=== PATIENT | female | born 1995 | race African-American/Black ===

== ENCOUNTER 2023-10-17 06:34 | Emergency (ER) | payer BC, SELFPAY ==
--- NOTE | ~2023-10-17 | US_ITS ---
US abdomen limited INDICATION: Right upper quadrant pain PROCEDURE: Realtime right upper abdominal ultrasound. COMPARISON: No prior studies for comparison. FINDINGS: The pancreas is normal without focal mass or pancreatic ductal dilation. Liver echotexture is normal without focal mass or intrahepatic biliary dilatation. There is normal directional flow i n the portal vein. There are multiple gallstones. No gallbladder wall thickening or pericholecystic fluid. Common bile duct measures 3 mm. No sonographic Park's sign. IMPRESSION: 1: Cholelithiasis. Reviewed, dictated and finalized at location B. [employer] [employer] IMPRESSION: 1: Cholelithiasis.
--- NOTE | ~2023-10-17 | CT_ITS ---
CT of the Abdomen and Pelvis: Indication: Abdominal pain Technique: 2.5 mm axial scans were obtained through the abdomen and pelvis following intravenous adm inistration of 100 cc of Omnipaque 350. Dose reduction technique was used on this scan by utilizing a utomated exposure control and iterative reconstruction technique. The dose-length product (DLP) was 9 55.89 mGy-cm. Findings: Scans through the lung bases are unremarkable. The liver, spleen, pancreas, adrenals and kidneys are within normal limits. Gallbladder is probably d istended, possible small amount of sludge present. No evidence of aortic aneurysm. No lymphadenopath y. No bowel obstruction or bowel wall thickening. There is no evidence to suggest acute appendicitis. Images through the pelvis were performed. Urinary bladder unremarkable. No adnexal mass seen. No asci danial. Impression: Probable small amount of gallbladder sludge. No other significant findings. Reviewed, dictated and finalized at [facility] [place]. [facility] Impression: Probable small amount of gallbladder sludge. No other significant findings.
[2023-10-17 06:43] VITALS: BP 131/82; PULSE 96; RESP 18; TEMP 36.4; O2SAT 97
[2023-10-17 07:34] LABS: Basophils Percent Auto 0.3 % (0.2-1.2); Eosinophils Absolute Auto 0.1 K/mm3 (0-0.3); Eosinophils Percent Auto 2.2 % (0-4.4); Hematocrit 38.2 % (37.0-47.0); Hemoglobin 12.3 g/dL (12.0-15.0); Immature Granulocyte Absolute 0.01 K/mm3 (0.00-0.031); Immature Granulocyte Percent A 0.2 % (0-0.5); Lymphocytes Absolute Auto 2.04 K/mm3 (0.9-3.2); Lymphocytes Percent Auto 34.4 % (18.3-44.2); Mean Corpuscular HGB Conc 32.2 g/dl (32-36); Mean Corpuscular Hemoglobin 27.5 pg (26-34); Mean Corpuscular Volume 85.3 fl (80-100); Mean Platelet Volume 9.7 fl (7.4-10.4); Monocytes Absolute Auto 0.4 K/mm3 (0.1-0.6); Monocytes Percent Auto 6.7 % (2.6-8.5); Neutrophils Absolute Auto 3.3 K/mm3 (1.3-6.7); Neutrophils Percent Auto 56.2 % (45.5-73.1); Platelet Count Result 339 k/mm3 (150-375); Red Blood Count 4.48 M/mm3 (4.2-5.4); Red Cell Distribution Width 13.2 % (11.5-14.5); White Blood Count 5.9 K/mm3 (4.5-10.0)
[2023-10-17] MEDS: HYDROmorphone HCL INJ (*CRX) 1 MG/ML SYR 0.5 MG IV PUSH ×2 (07:39→09:13)
[2023-10-17] MEDS: ONDANSETRON INJ 4 MG/2 ML VIAL IV PUSH (07:39)
--- NOTE | 2023-10-17 07:40 | ED.ABDPAIN ---
HPI - Abdominal Pain General Chief Complaint: Abdominal Pain Stated Complaint: upper abd pain, N/V Time Seen by Provider: 10/17/23 07:11 History of Present Illness HPI narrative: 28-year-old female presents to the emergency department for evaluation of right upper quadrant right flank pain that started this morning approximately 5:00 a.m.. Patient does have associated nausea and vomiting with it. Patient denies any prior history of gallbladder disease. Patient denies any prior history of kidney stones. Patient reports she has had similar pain to this typically the attacks were shorter and this intense. Related Data Allergies Allergy/AdvReac Type Severity Reaction Status Date / Time No Known Allergies Allergy Verified 10/17/23 07:38 Review of Systems Review of Systems: All systems reviewed & are unremarkable except as noted in HPI and below Exam Narrative: APPEARANCE: Uncomfortable appearing HEAD: normocephalic, atraumatic. EYES: PERRLA/EOMI, conjunctivae clear. NOSE: Normal no drainage EARS:TMS clear with good light reflex. THROAT: Pharynx clear, no exudate. NECK: Supple. No adenopathy, no masses. RESPIRATORY: Airway patent, respirations nonlabored. Clear to auscultation bilaterally, no rales, rhonchi, wheezing. CARDIOVASCULAR: Regular rate and rhythm without murmurs rubs or gallops. ABDOMINAL: right upper quadrant and right flank tenderness to palpation no rebound MUSCULOSKELETAL: Moves all extremities. Strength/ROM intact, No edema, No calf tenderness. NEURO: Alert. Cranial nerves II through XII intact. grossly intact Course Course Emergency Course: 28-year-old female present in the department for evaluation of upper quadrant pain. Patient was treated fluids medications for nausea and for pain control. Patient did feel improved with treatment. Patient is afebrile with no leukocytosis and a stable hemoglobin. Patient has mild elevation of AST and ALT elevation in alk-phos or T bili. Lipase not elevated. UA shows no signs of infection. Patient did have some gallbladder sludge seen on the CT scan and ultrasound shows cholelithiasis. Re-examination patient is pain free. Patient was educated the treatment plan for home and patient provided outpatient follow-up with surgery. Patient was also educated on reasons to return to the department. All questions concerns addressed patient was appearing at time of discharge from the emergency department. Vital Signs Vital signs: Vital Signs Temperature 97.6 F 10/17/23 06:43 Pulse Rate 96 10/17/23 06:43 Respiratory Rate 18 10/17/23 06:43 Blood Pressure 131/82 10/17/23 06:43 Pulse Oximetry 97 10/17/23 06:43 Temperature 97.6 F 10/17/23 06:43 Pulse Rate 80 10/17/23 11:58 Respiratory Rate 18 10/17/23 11:58 Blood Pressure 134/82 10/17/23 11:58 Pulse Oximetry 100 10/17/23 11:58 MDM - Abdominal Pain Differential Diagnosis Differential diagnosis: Likely abdominal pain, acute appendicitis, calculus of kidney, constipation, diverticulitis and small bowel obstruction Lab Data Attestation: I reviewed the patient's lab results. 10/17/23 07:27 10/17/23 07:27 Labs: Lab Results 10/17/23 10/17/23 Range/Units 07:27 08:19 WBC 5.9 (4.5-10.0) K/mm3 RBC 4.48 (4.2-5.4) M/mm3 Hgb 12.3 (12.0-15.0) g/dL Hct 38.2 (37.0-47.0) % MCV 85.3 (80-100) fl MCH 27.5 (26-34) pg MCHC 32.2 (32-36) g/dl RDW 13.2 (11.5-14.5) % Plt Count 339 (150-375) k/mm3 MPV 9.7 (7.4-10.4) fl Immature Gran % (Auto) 0.2 (0-0.5) % Neut % (Auto) 56.2 (45.5-73.1) % Lymph % (Auto) 34.4 (18.3-44.2) % [place] % (Auto) 6.7 (2.6-8.5) % Eos % (Auto) 2.2 (0-4.4) % Baso % (Auto) 0.3 (0.2-1.2) % Lymph # (Auto) 2.04 (0.9-3.2) K/mm3 [place] # (Auto) 0.4 (0.1-0.6) K/mm3 Eos # (Auto) 0.1 (0-0.3) K/mm3 Baso # (Auto) 0.0 (0.0-0.1) K/mm3 Abs Immat Gran (auto) 0.01 (0.00-0.031)
[2023-10-17 07:48] LABS: Alanine Aminotransferase 44 U/L (6-35); Albumin Level 4.7 g/dL (3.5-5.1); Alkaline Phosphatase 85 U/L (38-126); Anion Gap 11 mmol/L (8-16); Aspartate Amino Transferase 41 U/L (14-36); Bilirubin,Total 0.5 mg/dL (0.2-1.3); Blood Urea Nitrogen 10 mg/dL (7-17); Calcium 8.7 mg/dL (8.4-10.2); Carbon Dioxide 24 mmol/L (22-30); Chloride 105 mmol/L (98-107); Estimated CRCL calculation 152 ml/min; Estimated Glomerular Filt Rate > 60; Glucose 99 mg/dL (65-110); Potassium 3.8 mmol/L (3.4-5.0); Sodium 140 mmol/L (137-145)
[2023-10-17] MEDS: SODIUM CHLORIDE 0.9% IV 1,000 ML 999 ML IV CONT (07:48)
[2023-10-17 08:00] LABS: Lipase 76 U/L (23-300)
[2023-10-17 08:51] LABS: Appearance Urine Cloudy (Clear); Bacteria Urine 2+ /hpf; Bilirubin Urine Negative (Negative); Blood Urine Negative (Negative); Color Urine Yellow (Yellow); Glucose Urine UA Negative (Negative); Ketones Urine Negative (Negative); Leukocyte Esterase Ur Negative LEU/UL (Negative); Need Manual Microscopic Reviewed; Nitrate Urine Negative (Negative); Non Pathogenic Casts 0-2; Protein Urine Trace mg/dL (Negative); RBC Urine 0-2 /hpf (0-2); Specific Grav Ur 1.029 (1.001-1.035); Squamous Epithelial Cell Urine Many /hpf (Few); pH Urine 6.5 (5.0-9.0)
[2023-10-17 08:52] LABS: Add Urine Microscopic? YES
[2023-10-17 09:14] VITALS: BP 116/65; PULSE 84; RESP 14; O2SAT 98
[2023-10-17 11:19] VITALS: BP 138/77
[2023-10-17 11:58] VITALS: BP 134/82; PULSE 80; RESP 18; O2SAT 100
== END 2023-10-17 11:59 | disposition home or self-care (01) ==
PROVIDERS: Emergency Provider Emergency Medicine
DX: K80.70 Calculus of gallbladder and bile duct without cholecystitis without obstruction (principal)
CPT/HCPCS: 36415; 74177; 76705; 80053; 81001; 81025; 83690; 85025; 87086; 87088; 96361; 96374; 96375; 96376; 99284; J1170; J2405; J7030; Q9967

== ENCOUNTER 2023-12-21 10:38 | Emergency (ER) | payer BC, SELFPAY ==
[2023-12-21 11:00] VITALS: BP 140/72; PULSE 89; RESP 16; TEMP 37.5; O2SAT 99
--- NOTE | 2023-12-21 11:24 | ED.GENADULT ---
HPI - General Adult General Chief complaint: Urogenital-Female Stated complaint: Std exposure Source: patient, RN notes reviewed and old records reviewed Mode of arrival: ambulatory Limitations: no limitations History of Present Illness HPI narrative: 28-year-old female presents to [facility] with complaint of exposure to gonorrhea and has sore throat. Patient states significant other told her that he tested positive for gonorrhea earlier in the week. Patient states she is not having any vaginal discharge or vaginal odor but states has been on her menstrual cycle for the last week. Related Data Home Medications Medication Instructions Recorded Confirmed No Home Medications 11/01/23 12/21/23 Allergies Allergy/AdvReac Type Severity Reaction Status Date / Time No Known Allergies Allergy Verified 12/21/23 11:13 Review of Systems Constitutional: Constitutional: Reports no additional constitutional complaints, Denies body ache(s), Denies chills, Denies fatigue, Denies fever(s) and Denies headache(s) Eyes: Eyes: Reports no additional eye complaints and Denies blurry vision ENT: Reports system reviewed and no additional complaints, except as documented, Denies vertigo, Denies dizziness, Denies ear discharge, Denies otalgia, Denies facial pain, Denies headache(s), Denies nasal congestion, Denies nasal discharge, Denies sinus pain, Denies sinus pressure and Reports sore throat Cardiovascular: Cardiovascular: Reports no additional cardiovascular complaints, Denies chest pain, Denies chest pain at rest, Denies rapid heart rate and Denies dyspnea Respiratory: Respiratory: Reports no additional respiratory complaints, Denies chest congestion, Denies cough, Denies pain on inspiration, Denies pain with cough and Denies dyspnea Gastrointestinal: Gastrointestinal: Denies abdominal pain, Denies diarrhea, Denies nausea and Denies vomiting Integumentary/Breasts: Skin/Breast: Denies rash Neurologic: Reports system reviewed and no additional complaints, except as documented, Denies vertigo, Denies dizziness and Denies headache(s) Endocrine: Endocrine: Denies fatigue PMFSH Past Medical History Medical History Asthma affecting in third trimester Gestational diabetes Gestational hypertension Surgical History Surgical History Hx of tonsillectomy Family History Family History Father Acute myocardial infarction Diabetes mellitus Mother Diabetes mellitus Graves disease Grandparent Cerebrovascular accident Other Cancer Social History Social History Smoking status: Light tobacco smoker Alcohol intake: current Alcohol use details: rarely Occupation/Education: occupation 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 There is no relevant family history pertinent to the patient complaint. Exam Const: General: cooperative, healthy appearing, no acute distress and well nourished Nutritional Appearance: well nourished Orientation/consciousness: patient oriented x3 Limitations: no limitations HENMT: Head: normal to inspection and normocephalic Ears: external ears normal, TM's normal bilaterally, mastoids normal and Abnormal EAC present Face/Nose/Sinus: normal facial exam Face and sinus: normal facial exam Mouth: Yes Normal oral and palatal mucosa present, Yes oropharynx normal and Yes moist mucous membranes Throat: posterior oropharynx normal, tonsils normal, uvula midline and no uvular edema Eyes: General: appearance normal, both eyes and all related structures Sclera: sclerae normal P
[2023-12-21] MEDS: cefTRIAXone 500 MG, LIDOCAINE HCL 1% LOCAL INJ 1 ML IM (11:44)
[2023-12-21 19:54] LABS: Trichomonas Vag PCR NOT DETECTED (NOT DETECTE)
[2023-12-21 20:17] LABS: Chlamydia trachomatis NOT DETECTED (NOT DETECTE); Neisseria gonorrhoeae PCR DETECTED (NOT DETECTE)
== END 2023-12-21 11:52 | disposition home or self-care (01) ==
PROVIDERS: Emergency Provider Registered Nurse
DX: A54.9 Gonococcal infection, unspecified (principal); J45.909 Unspecified asthma, uncomplicated; F17.200 Nicotine dependence, unspecified, uncomplicated
CPT/HCPCS: 87491; 87591; 87661; 96372; 99214; G0463; J0696

== ENCOUNTER 2024-04-13 12:08 | Emergency (ER) | payer BC, SELFPAY ==
--- NOTE | ~2024-04-13 | XR_ITS ---
Clinical Indication: Shortness of breath PA and lateral views of the chest: Comparison: None Findings: The lungs are clear, without evidence of focal consolidation or pleural effusion. Cardiome diastinal silhouette is within normal limits. Bones and soft tissues are unremarkable. Impression: Normal chest. Reviewed, dictated and finalized at [facility]. Impression: Normal chest.
--- NOTE | 2024-04-13 12:09 | ED.RECABL ---
HPI - Recheck/Abnormal Lab/Rx General Chief Complaint: Arrhythmia/Palpitations Stated Complaint: High B/P Time Seen by Provider: 04/13/24 12:08 Source: patient Mode of arrival: ambulatory Limitations: no limitations History of Present Illness HPI narrative: Ly is a 28-year-old female patient presenting to the clinic today with complaints elevated blood pressure, dizziness, shortness of breath, palpitations, and nasal congestion. She reports that the symptoms have been ongoing for for several months. Does not have a primary care provider. Works for [employer] and discussed her case with a nurse and they recommend her come in to be evaluated for high blood pressure. Blood pressure was 145/87 in the clinic today. Patient has had history preeclampsia with both her pregnancies. Last was approximately 1 year ago. Last menstrual period was last month. States she has had recent intercourse 4 days ago. Is currently . Related Data Allergies Allergy/AdvReac Type Severity Reaction Status Date / Time No Known Allergies Allergy Verified 04/13/24 12:11 Review of Systems Review of Systems: Pertinent positives per HPI. Patient denies any fever, chills, rash, headache, visual changes, dizziness, cough, runny nose, sore throat, shortness of breath, chest pain, palpitations, nausea, vomiting, diarrhea, constipation, abdominal pain, or any urinary issues. 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 There is no relevant family history pertinent to the patient complaint. Exam Narrative: General: Well-developed, morbidly obese, in no apparent distress Head: Normocephalic, atraumatic Eyes: Pupils equally round and reactive to light bilaterally, EOM intact, sclera and conjunctive clear, no discharge, lids normal Ears: TMs intact and clear, ear canals clear, no drainage, grossly hearing normal. Nose: Nares patent, no discharge, no inflammation, no sinus tenderness. Mouth: Oropharynx without lesions or masses, good dentition, MMM. Neck: Supple, trachea midline, no enlargement of anterior or posterior cervical nodes, no thyroid masses or goiter palpable. Cardio: Regular rate and rhythm, s1 and s2 normal, no murmur appreciated. Resp: Clear to auscultation bilaterally anteriorly and posteriorly, no rhonchi, rales, wheezing or rubs Extremities: No deformity, no edema, no cyanosis, capillary refill less than 2 seconds, peripheral pulses palpable and strong. Integumentary: [place], warm, and dry, intact without lesion, no rashes. Course Course Emergency Course: Portions of this record may have been created with voice recognition software. Level of Care: Express Care Visit Vital Signs Vital signs: Vital signs reviewed MDM - Recheck/Abnormal Lab/Rx MDM Narrative Medical decision making narrative: At the time of visit patient is resting comfortably on the exam table. Patient appears to be nontoxic. EKG: EKG shows normal sinus
--- NOTE | 2024-04-13 12:18 | ECG_ITS ---
[facility] [address] Test Date: 2024-04-13 Pat Name: Ly Cintron Department: Room: Gender: F Director Of [employer]: : 1995 Requested By: Issa Pearce Order Number: [id number] Reading MD: Mack Childs M.D. Measurements Intervals [place] Rate: P: OK: QRS: QRSD: T: QT: QTc: Interpretive Statements Electronically Signed On 04-27-2024 08:44:17 CDT by Mack Childs M.D.
[2024-04-13 12:19] VITALS: BP 145/87; PULSE 90; RESP 16; TEMP 36.9; O2SAT 100
== END 2024-04-13 13:20 | disposition home or self-care (01) ==
PROVIDERS: Emergency Provider Nurse Practitioner Family
DX: R03.0 Elevated blood-pressure reading, without diagnosis of hypertension (principal); R00.2 Palpitations; N30.01 Acute cystitis with hematuria; F17.200 Nicotine dependence, unspecified, uncomplicated
CPT/HCPCS: 71046; 81003; 81025; 87086; 87088; 93005; 99213; G0463

== ENCOUNTER 2024-09-20 10:06 | Emergency (ER) | payer SELFPAY ==
[2024-09-20 11:06] VITALS: BP 125/75; PULSE 90; RESP 16; TEMP 36.8; O2SAT 100
[2024-09-20] MEDS: SODIUM CHLORIDE 0.9% IV 1,000 ML 999 ML IV CONT (13:46)
[2024-09-20 14:02] LABS: Basophils Percent Auto 0.3 % (0.2-1.2); Eosinophils Percent Auto 1.1 % (0-4.4); Hematocrit 35.1 % (37.0-47.0); Hemoglobin 11.1 g/dL (12.0-15.0); Lymphocytes Absolute Auto 1.74 K/mm3 (0.9-3.2); Lymphocytes Percent Auto 47.2 % (18.3-44.2); Mean Corpuscular HGB Conc 31.6 g/dl (32-36); Mean Corpuscular Hemoglobin 26.6 pg (26-34); Mean Platelet Volume 9.2 fl (7.4-10.4); Monocytes Absolute Auto 0.3 K/mm3 (0.1-0.6); Monocytes Percent Auto 7.6 % (2.6-8.5); Neutrophils Absolute Auto 1.6 K/mm3 (1.3-6.7); Neutrophils Percent Auto 43.8 % (45.5-73.1); Platelet Count Result 292 k/mm3 (150-375); Red Blood Count 4.18 M/mm3 (4.2-5.4); White Blood Count 3.7 K/mm3 (4.5-10.0)
[2024-09-20 14:25] LABS: Alanine Aminotransferase 47 U/L (6-35); Albumin Level 4.3 g/dL (3.5-5.1); Alkaline Phosphatase 67 U/L (38-126); Anion Gap 9 mmol/L (4-12); Aspartate Amino Transferase 27 U/L (14-36); Bilirubin,Total 0.4 mg/dL (0.2-1.3); Blood Urea Nitrogen 13 mg/dL (7-17); Calcium 8.5 mg/dL (8.4-10.2); Carbon Dioxide 27 mmol/L (22-30); Chloride 104 mmol/L (98-107); Estimated Glomerular Filt Rate > 60; Glucose 80 mg/dL (65-110); Sodium 140 mmol/L (137-145)
[2024-09-20 14:38] LABS: Add Urine Microscopic? YES; Appearance Urine Clear (Clear); Bacteria Urine 1+ /hpf; Bilirubin Urine Negative (Negative); Blood Urine Negative (Negative); Color Urine Yellow (Yellow); Glucose Urine UA Negative (Negative); Ketones Urine 1+ mg/dL (Negative); Leukocyte Esterase Ur Trace LEU/UL (Negative); Nitrate Urine Negative (Negative); Non Pathogenic Casts 0-2; Protein Urine Trace mg/dL (Negative); RBC Urine 0-2 /hpf (0-2); Specific Grav Ur 1.031 (1.001-1.035); Squamous Epithelial Cell Urine Few /hpf (Few); WBC Urine 0-5 /hpf (0-3); pH Urine 7.5 (5.0-9.0)
--- NOTE | 2024-09-20 15:57 | ED.GENADULT ---
HPI - General Adult General Chief complaint: Back Pain/Injury Stated complaint: L MID BACK PAIN 3D AGO Time Seen by Provider: 09/20/24 13:25 History of Present Illness HPI narrative: 29-year-old female presenting to the emergency department for evaluation for back pain. Related Data Allergies Allergy/AdvReac Type Severity Reaction Status Date / Time No Known Allergies Allergy Verified 04/13/24 12:11 Review of Systems Review of Systems: All systems reviewed & are unremarkable except as noted in HPI and below PMFSH Past Medical History Medical History Asthma affecting in third trimester Gestational diabetes Gestational hypertension Surgical History Surgical History Hx of tonsillectomy Family History Family History Father Acute myocardial infarction Diabetes mellitus Mother Diabetes mellitus Graves disease Grandparent Cerebrovascular accident Other Cancer Social History Social History Smoking status: Light tobacco smoker Alcohol intake: current Alcohol use details: rarely Occupation/Education: occupation 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 Gender identity (if verbalized by the patient): Female Course Vital Signs Vital signs: Vital Signs Temperature 98.2 F 09/20/24 11:06 Pulse Rate 90 09/20/24 11:06 Respiratory Rate 16 09/20/24 11:06 Blood Pressure 125/75 09/20/24 11:06 Pulse Oximetry 100 09/20/24 11:06 Temperature 98.2 F 09/20/24 11:06 Pulse Rate 84 09/20/24 16:24 Respiratory Rate 16 09/20/24 16:24 Blood Pressure 138/76 09/20/24 16:24 Pulse Oximetry 98 09/20/24 16:24 Medical Decision Making [facility] Narrative Medical decision making narrative: 29-year-old female presents to the emergency department for evaluation back pain. Patient is afebrile with no leukocytosis and hemoglobin 11.1. No acute abnormalities on her CMP UA was positive for leukocyte esterase and bacteria. Urine culture was ordered. Patient will be started on antibiotics. Patient will also be provided Flexeril for muscle spasm. Patient was advised to take Tylenol and ibuprofen for pain control Differential Diagnosis Differential Diagnosis: Urinary tract infection, muscle spasm, kidney stone, colitis, diverticulitis Vital Signs Vital Signs: Vital Signs Temperature 98.2 F 09/20/24 11:06 Pulse Rate 90 09/20/24 11:06 Respiratory Rate 16 09/20/24 11:06 Blood Pressure 125/75 09/20/24 11:06 Pulse Oximetry 100 09/20/24 11:06 Temperature 98.2 F 09/20/24 11:06 Pulse Rate 84 09/20/24 16:24 Respiratory Rate 16 09/20/24 16:24 Blood Pressure 138/76 09/20/24 16:24 Pulse Oximetry 98 09/20/24 16:24 Lab Data 09/20/24 13:46 09/20/24 13:46 Labs: Lab Results 09/20/24 09/20/24 Range/Units 13:46 14:17 WBC 3.7 L (4.5-10.0) K/mm3 RBC 4.18 L (4.2-5.4) M/mm3 Hgb 11.1 L (12.0-15.0) g/dL Hct 35.1 L (37.0-47.0) % MCV 84.0 (80-100) fl MCH 26.6 (26-34) pg MCHC 31.6 L (32-36) g/dl RDW 13.0 (11.5-14.5) % Plt Count 292 (150-375) k/mm3 MPV 9.2 (7.4-10.4) fl Immature Gran % (Auto) 0.0 (0-0.5) % Neut % (Auto) 43.8 L (45.5-73.1) % Lymph % (Auto) 47.2 H (18.3-44.2) % [place] % (Auto) 7.6 (2.6-8.5) % Eos % (Auto) 1.1 (0-4.4) % Baso % (Auto) 0.3 (0.2-1.2) % Lymph # (Auto) 1.74 (0.9-3.2) K/mm3 [place] # (Auto) 0.3 (0.1-0.6) K/mm3 Eos # (Auto) 0.0 (0-0.3) K/mm3 Baso # (Auto) 0.0 (0.0-0.1) K/mm3 Abs Immat Gran (auto) 0.00 (0.00-0.031) K/mm3 Absolute Neuts (auto) 1.6 (1.3-6.7) K/mm3 Absolute Nucleated RBC 0.000 (0.0-0.012) K/mm3 Nucleated RBC % 0.0 (0.0-0.2) % Sodium 140 (137-145) mmol/L Potassium 4.0 (3.4-5.0) mmol/L Chloride 104 (98-107) mmol/L Carbon Dioxide 27 (22-30) mmol/L Anion Gap 9 (4-12) mmol/L BUN 13 (7-17) mg/dL Creatinine 0.60 L (0.7-1.0) mg/dL Estim Creat Clear Calc Not Reportable Estimated GFR > 60 (59 - ) Glucose 80 (65-110) mg/dL Calcium 8.5 (8.4-10.2) mg/dL Total Bilirubin 0.4 (0.2-1.3) mg/dL AST 27 (14-36) U/L ALT 47 H (6-35) U/L Alkaline Phosphatase 67 (38-126) U/L Total Protein 8.0 (6.3-8.2) g/dL Albumin 4.3 (3.5-5.1) g/dL Urine Color Yellow (Yellow) Urine Appearance Clear (Clear) Urine pH 7.5 (5.0-9.0) Ur Specific [place] 1.031 (1.001-1.035) Urine Protein Trace (Negative) mg/dL Urine Glucose (UA) Negative (Negative) mg/dL Urine Ketones 1+ H (Negative) mg/dL Ur Blood (Man) Negative (Negative) Urine Nitrate Negative (Negative) Urine Bilirubin Negative (Negative) Urine Urobilinogen 1.0 (<2.0) mg/dL Leukocyte Esterase Rfl Trace H (Negative) GUSTAVO/UL Urine RBC 0-2 (0-2) /hpf Urine WBC 0-5 (0-3) /hpf Ur Squamous Epith Cells Few (Few) /hpf Urine Bacteria 1+ H /hpf Urine Casts 0-2 Discharge Plan Discharge Clinical Impression: Back pain, UTI (urinary tract infection) Patient Disposition: Home, Self-Care Condition: Stable Instructions: Antibiotic Form, Urinary Tract Infection in Men (ED), Acute Low Back Pain (ED) Additional Instructions: Antibiotic as directed until completed. Tylenol and ibuprofen for pain control. Flexeril for muscle spasm if this is due to musculoskeletal causes. Have close follow-up with her primary care physician P Prescriptions: New cyclobenzaprine 10 mg tablet 10 mg PO BID PRN (Reason: muscle spasm) Qty: 14 0RF cephalexin 500 mg capsule 500 mg PO Q8H 7 Days Qty: 21 0RF No Action Nexplanon 68 mg implant 1 implant subdermal ONCE Qty: 1 0RF Rx Instructions: as a single dose Follow-up/Referrals: Tara Middleton APRN [Primary Care Provider] -
[2024-09-20 16:24] VITALS: BP 138/76; PULSE 84; RESP 16; O2SAT 98
[2024-09-20] MEDS: CEPHALEXIN 500 MG CAPSULE PO (16:24)
== END 2024-09-20 16:25 | disposition home or self-care (01) ==
PROVIDERS: Emergency Provider Emergency Medicine; PCP Nurse Practitioner Family
DX: N39.0 Urinary tract infection, site not specified (principal); M54.9 Dorsalgia, unspecified
CPT/HCPCS: 36415; 80053; 81001; 85025; 96360; 96361; 99283; A9270; J7030